=== PATIENT | male | born 1980 | race Caucasian/White ===

== ENCOUNTER 2017-07-24 12:30 | Inpatient (IN) | payer OTHER ==
[2017-07-24] VITALS (18 sets, daily range): BP systolic 106–129; BP diastolic 62–85
[~2017-07-24] VITALS: Ht 185.4 cm; Wt 71.7 kg
--- NOTE | ~2017-07-24 | EKG ---
[address] [address] ELECTROCARDIOGRAM REPORT Name: SHARRI PARKS Room #: 450-P ADM IN M.R.#: [id number] Admission: 07/24/17 Attend Phys: Shaquille Hendrickson MD Discharge: Date of : 84 Report #: [id number] THIS REPORT FOR: //name// [facility] Test Date: 2017-07-25 Test Time: 13:19:44 Pat Name: SHARRI PARKS Department: Room: [facility] Gender: M Rn Utilization Management Um: Viridiana PROCTOR : 1980 Requested By: Shaquille Hendrickson Order Number: [id number] MD: Fabian Corrales Measurements Intervals [place] Rate: 63 P: 70 OK: 143 QRS: 73 QRSD: 81 T: 68 QT: 406 QTc: 416 Interpretive Statements Sinus rhythm Early repolarization No previous ECG available for comparison Electronically Signed On 07-25-2017 17:27:33 CDT by Fabian Corrales [email or web address] <ELECTRONICALLY SIGNED> By: Fabian Corrales MD, [facility] 07/25/17 1727 1319 1319 Fabian Corrales MD, FACC /EPI
[2017-07-24 13:00] LABS: BASOPHILS 0.3 % (0.0-2.0); EOSINOPHILS 0.7 % (0.0-3.0); HEMATOCRIT 44.2 % (42.0-52.0); LYMPHOCYTES 16.2 % (24.0-44.0); MCH 30.7 pg (26.0-34.0); MCHC 33.8 g/dL (28.0-37.0); MCV 90.8 fL (80.0-100.0); MONOCYTES 8.1 % (1.0-8.0); PLATELET COUNT 421 thou/uL (150-400); POLYS 74.7 % (36.0-66.0); RBC 4.87 mil/uL (4.50-6.00); RDW 13.8 % (10.5-14.5); WBC 17.4 thou/uL (4.0-11.0)
[2017-07-24 13:07] LABS: ANION GAP 22 mmol/L (7-16); BUN 17 mg/dL (7-18); CALCIUM 8.9 mg/dL (8.5-10.1); CHLORIDE 98 mmol/L (98-107); CO2 17 mmol/L (21-32); CREATININE 1.2 mg/dL (0.7-1.3); GLUCOSE 65 mg/dL (74-106); POTASSIUM 3.9 mmol/L (3.5-5.1); SODIUM 137 mmol/L (136-145)
[2017-07-24 13:13] LABS: ALBUMIN 4.5 g/dL (3.4-5.0); DIRECT BILIRUBIN 0.3 mg/dL (<0.1-0.3); SALICYLATE < 2.8 mg/dL (2.8-20.0); SGOT 84 U/L (15-37); SGPT 43 U/L (30-65); TOTAL BILIRUBIN 0.8 mg/dL (<0.1-1.0); TOTAL PROTEIN 7.9 g/dL (6.4-8.2)
[2017-07-24 13:40] LABS: HCO3 13.6 mmol/L (22.0-26.0); PCO2 30.8 mmHg (35.0-45.0); PO2 99.8 mmHg (80.0-100.0); sO2 96.8 % (92.0-98.0)
[2017-07-24 13:41] LABS: pH 7.264 (7.360-7.450)
[2017-07-24 15:47] LABS: AMYLASE 22 U/L (25-115); GGTP 39 U/L (15-85); LIPASE 58 U/L (73-393)
[2017-07-24 16:17] LABS: TSH 0.621 uIU/mL (0.358-3.740)
[2017-07-24 20:03] LABS: BE(vivo) 0.9 mmol/L (-2 to +3); HCO3 25.4 mmol/L (22.0-26.0); PCO2 39.8 mmHg (35.0-45.0); PO2 92.9 mmHg (80.0-100.0); pH 7.422 (7.360-7.450); sO2 97.3 % (92.0-98.0)
[2017-07-24 20:36] LABS: URINE BILIRUBIN NEGATIVE (Negative); URINE BLOOD NEGATIVE (Negative); URINE CLARITY CLEAR; URINE COLOR YELLOW; URINE GLUCOSE-RANDOM* NEGATIVE (Negative); URINE KETONES TRACE (Negative); URINE LEUKOCYTES-REFLEX NEGATIVE (Negative); URINE NITRITE-REFLEX NEGATIVE (Negative); URINE PROTEIN (DIPSTICK) NEGATIVE (Negative); URINE UROBILINOGEN 0.2 E.U./dl (0.2-1.0)
[2017-07-24 20:44] LABS: AMP/METHAMP Negative (Negative); BARBITURATES Negative (Negative); BENZODIAZEPINES POSITIVE (Negative); COCAINE Negative (Negative); METHADONE Negative (Negative); OPIATES Negative (Negative); PCP Negative (Negative)
[2017-07-25] VITALS (19 sets, daily range): BP systolic 97–128; BP diastolic 69–90
[2017-07-25 06:03] LABS: HEMATOCRIT 35.6 % (42.0-52.0); MCH 31.5 pg (26.0-34.0); RBC 3.95 mil/uL (4.50-6.00); RDW 13.6 % (10.5-14.5); WBC 6.7 thou/uL (4.0-11.0)
[2017-07-25 06:04] LABS: HEMOGLOBIN 12.5 gm/dL (14.0-18.0)
[2017-07-25 06:19] LABS: CALCIUM 8.5 mg/dL (8.5-10.1); CREATININE 0.9 mg/dL (0.7-1.3); POTASSIUM 4.5 mmol/L (3.5-5.1)
[2017-07-26 03:18] VITALS: BP 104/69
[2017-07-26 05:09] LABS: ABSOLUTE NEUTROPHILS 2.4 thou/uL (1.4-8.2); BASOPHILS 0.3 % (0.0-2.0); EOSINOPHILS 5.2 % (0.0-3.0); HEMATOCRIT 35.8 % (42.0-52.0); HEMOGLOBIN 12.4 gm/dL (14.0-18.0); LYMPHOCYTES 32.5 % (24.0-44.0); MCH 31.5 pg (26.0-34.0); MCHC 34.6 g/dL (28.0-37.0); MCV 91.1 fL (80.0-100.0); PLATELET COUNT 207 thou/uL (150-400); RBC 3.92 mil/uL (4.50-6.00); RDW 13.3 % (10.5-14.5); WBC 4.7 thou/uL (4.0-11.0)
[2017-07-26 05:23] LABS: CALCIUM 8.3 mg/dL (8.5-10.1); CREATININE 0.9 mg/dL (0.7-1.3); MAGNESIUM 1.7 mg/dL (1.8-2.4); PHOSPHORUS 3.8 mg/dL (2.5-4.9); POTASSIUM 3.7 mmol/L (3.5-5.1)
[2017-07-26 07:10] VITALS: BP 104/69
[2017-07-26 19:10] VITALS: BP 117/81
[2017-07-27 04:16] VITALS: BP 102/69
[2017-07-27 07:00] VITALS: BP 101/67
[2017-07-27] MEDS ORDERED: PEPCID20 MG PO (13:26)
[2017-07-27] MEDS ORDERED: VISTARIL 25 MG25 M1 PO (13:26)
[2017-07-27] MEDS ORDERED: REVIA 50 MG TAB50 M1 PO (13:26)
[2017-07-27] MEDS ORDERED: VITAMIN B-1100 M2 PO (13:26)
[2017-07-27 14:14] VITALS: BP 110/70
== END 2017-07-27 14:31 | disposition home or self-care (01) | DRG 641 ==
LOC: ER 12:30 → EROBS 15:14 → ICU 17:02 → 4W 07-25 16:40
PROVIDERS: Hospitalist; Internal Medicine Pulmonary Disease; Nurse Practitioner
DX: E87.2 Acidosis (principal); F10.239 Alcohol dependence with withdrawal, unspecified; K75.81 Nonalcoholic steatohepatitis (NASH); Y90.9 Presence of alcohol in blood, level not specified; F41.9 Anxiety disorder, unspecified; F32.9 Major depressive disorder, single episode, unspecified; D72.829 Elevated white blood cell count, unspecified; Z79.899 Other long term (current) drug therapy
CPT/HCPCS: 10047; 10078

== ENCOUNTER 2017-09-26 04:15 | Emergency (ER) | payer OTHER ==
[~2017-09-26] VITALS: Ht 190.5 cm; Wt 68.0 kg
[~2017-09-26 04:15] MED LIST: PEPCID20 MG PO; REVIA 50 MG TAB50 M1 PO; VISTARIL 25 MG25 M1 PO; VITAMIN B-1100 M2 PO
[2017-09-26 05:03] LABS: ABSOLUTE NEUTROPHILS 4.4 thou/uL (1.4-8.2); BASOPHILS 0.5 % (0.0-2.0); EOSINOPHILS 0.5 % (0.0-3.0); HEMATOCRIT 51.1 % (42.0-52.0); HEMOGLOBIN 17.7 gm/dL (14.0-18.0); LYMPHOCYTES 34.9 % (24.0-44.0); MCH 31.4 pg (26.0-34.0); MCHC 34.7 g/dL (28.0-37.0); MCV 90.5 fL (80.0-100.0); MONOCYTES 9.1 % (1.0-8.0); PLATELET COUNT 344 thou/uL (150-400); RBC 5.65 mil/uL (4.50-6.00); RDW 14.2 % (10.5-14.5)
[2017-09-26 05:08] LABS: CALCIUM 8.8 mg/dL (8.5-10.1); POTASSIUM 4.2 mmol/L (3.5-5.1)
[2017-09-26] MEDS ORDERED: PHENERGAN 25 MG25 M1 PO (06:03)
[2017-09-26] MEDS ORDERED: CHLORDIAZEPOXID25 M1 PO (06:03)
[2017-09-27] MEDS ORDERED: ATIVAN1 MG PO (11:07)
[2017-09-27] MEDS ORDERED: ZOFRAN ODT4 MG PO (12:49)
== END 2017-09-26 06:28 | disposition home or self-care (01) ==
LOC: ER 04:15
PROVIDERS: Emergency Medicine
DX: F10.239 Alcohol dependence with withdrawal, unspecified (principal); Y90.0 Blood alcohol level of less than 20 mg/100 ml

== ENCOUNTER 2017-09-27 09:10 | Emergency (ER) | payer OTHER ==
[~2017-09-27] VITALS: Ht 190.5 cm; Wt 68.0 kg
[~2017-09-27 09:10] MED LIST changes: +CHLORDIAZEPOXID25 M1 PO; +PHENERGAN 25 MG25 M1 PO
[2017-09-27 09:37] LABS: ABSOLUTE NEUTROPHILS 3.8 thou/uL (1.4-8.2); BASOPHILS 0.3 % (0.0-2.0); EOSINOPHILS 0.7 % (0.0-3.0); HEMATOCRIT 49.5 % (42.0-52.0); HEMOGLOBIN 17.3 gm/dL (14.0-18.0); LYMPHOCYTES 28.2 % (24.0-44.0); MCH 31.7 pg (26.0-34.0); MCHC 34.9 g/dL (28.0-37.0); MCV 90.6 fL (80.0-100.0); MONOCYTES 11.3 % (1.0-8.0); PLATELET COUNT 259 thou/uL (150-400); POLYS 59.5 % (36.0-66.0); RBC 5.46 mil/uL (4.50-6.00); RDW 14.1 % (10.5-14.5); WBC 6.4 thou/uL (4.0-11.0)
[2017-09-27 09:44] LABS: CALCIUM 8.6 mg/dL (8.5-10.1); POTASSIUM 3.8 mmol/L (3.5-5.1)
[2017-09-27 09:50] LABS: ALBUMIN 4.4 g/dL (3.4-5.0); DIRECT BILIRUBIN 0.4 mg/dL (<0.1-0.3); TOTAL BILIRUBIN 2.6 mg/dL (<0.1-1.0); TOTAL PROTEIN 8.2 g/dL (6.4-8.2)
[2017-09-27] MEDS ORDERED: ATIVAN1 MG PO (11:07)
[2017-09-27] MEDS ORDERED: ZOFRAN ODT4 MG PO (12:49)
== END 2017-09-27 13:03 | disposition home or self-care (01) ==
LOC: ER 09:10
PROVIDERS: Emergency Medicine
DX: F10.239 Alcohol dependence with withdrawal, unspecified (principal); R11.2 Nausea with vomiting, unspecified; R10.9 Unspecified abdominal pain; F41.9 Anxiety disorder, unspecified

== ENCOUNTER 2018-01-14 15:50 | Emergency (ER) | payer OTHER ==
[~2018-01-14] VITALS: Ht 190.5 cm; Wt 70.3 kg
[~2018-01-14 15:50] MED LIST changes: +ATIVAN1 MG PO; +ZOFRAN ODT4 MG PO
[2018-01-14 16:25] LABS: ABSOLUTE NEUTROPHILS 6.2 thou/uL (1.4-8.2); BASOPHILS 0.4 % (0.0-2.0); EOSINOPHILS 2.1 % (0.0-3.0); HEMATOCRIT 46.9 % (42.0-52.0); HEMOGLOBIN 16.3 gm/dL (14.0-18.0); LYMPHOCYTES 19.2 % (24.0-44.0); MCH 32.9 pg (26.0-34.0); MCHC 34.8 g/dL (28.0-37.0); MCV 94.4 fL (80.0-100.0); MONOCYTES 8.7 % (1.0-8.0); PLATELET COUNT 293 thou/uL (150-400); POLYS 69.6 % (36.0-66.0); RBC 4.97 mil/uL (4.50-6.00); RDW 13.5 % (10.5-14.5); WBC 8.9 thou/uL (4.0-11.0)
[2018-01-14 16:39] LABS: CALCIUM 9.2 mg/dL (8.5-10.1); CREATININE 1.1 mg/dL (0.7-1.3); POTASSIUM 3.8 mmol/L (3.5-5.1)
[2018-01-14 16:44] LABS: ALBUMIN 4.6 g/dL (3.4-5.0); TOTAL BILIRUBIN 0.7 mg/dL (<0.1-1.0); TOTAL PROTEIN 8.8 g/dL (6.4-8.2)
[2018-01-14] MEDS ORDERED: LIBRAX PO (17:38)
[2018-01-14] MEDS ORDERED: PHENERGAN 25 MG25 M1 PO (17:38)
== END 2018-01-14 17:55 | disposition home or self-care (01) ==
LOC: ER 15:50
PROVIDERS: Physician Assistant
DX: F10.239 Alcohol dependence with withdrawal, unspecified (principal); R00.0 Tachycardia, unspecified; Y90.0 Blood alcohol level of less than 20 mg/100 ml